=== PATIENT | male | born 1985 | race Hispanic/Latino ===

== ENCOUNTER 2018-05-21 20:10 | Emergency (ER) | payer OTHER ==
[~2018-05-21] VITALS: Ht 170.2 cm; Wt 92.5 kg
[~2018-05-21 20:10] MED LIST changes: -DIPHENHYDRAMINE HCL INJ 50 MG/ML VIAL ONE; -FAMOTIDINE 20 MG/2 ML VIAL IV ONE; -FENTANYL CITRATE/PF 100MCG/2 ML INJ ONE; -HEPARIN SOD/SOD CHLORIDE 2,000 ML ONE; -IOPAMIDOL 370 MG/ML 200 ML INFUS..BTL INJ ONE; -LIDOCAINE HCL 2% LOCAL 20 ML VIAL ONE; -METHYLPREDNISOLONE SOD SUCC 125 MG/2ML VIAL ONE; -MIDAZOLAM HCL 2 MG/2 ML VIAL ONE; -SODIUM CHLORIDE 0.9% 1000ML 1,000 ML ONE
[2018-05-21] MEDS ORDERED: ATENOLOL 50 MG TAB PO ONE (21:45)
[2018-05-21 22:24] VITALS: BP 138/85
== END 2018-05-21 22:29 | disposition home or self-care (01) ==
LOC: ER 20:10
DX: R00.2 Palpitations (principal); I10 Essential (primary) hypertension; K21.9 Gastro-esophageal reflux disease without esophagitis
CPT/HCPCS: 99283

== ENCOUNTER → 2018-05-21 | Day surgery (SDC) | payer OTHER ==
[2018-05-20 14:50] LABS: BASOPHILS # (AUTO) 0.1 (0.0-0.1); BASOPHILS % 0.9 % (0.0-1.0); EOSINOPHILS # (AUTO) 0.4 (0.0-0.4); EOSINOPHILS % 5.3 % (0.0-6.0); HEMATOCRIT 46.8 % (38.2-49.6); HEMOGLOBIN 16.2 g/dL (14.0-18.0); LYMPHOCYTES # (AUTO) 1.8 (1.0-3.2); LYMPHOCYTES % 25.6 % (18.0-39.1); MEAN CORPUSCULAR HGB CONC 34.6 g/dL (31-35); MEAN CORPUSCULAR VOLUME 86.7 fL (81-99); MONOCYTES # (AUTO) 0.6 (0.2-0.8); MONOCYTES % 9.1 % (4.4-11.3); NEUTROPHILS # (AUTO) 4.1 (2.1-6.9); NEUTROPHILS % 58.8 % (38.7-80.0); PLATELET COUNT 350 x10e3/uL (140-360); RED CELL DISTRIBUTION WIDTH 11.7 % (11.7-14.4)
[2018-05-20 15:07] LABS: INR 0.8; PROTHROMBIN TIME 11.9 seconds (11.9-14.5)
[2018-05-20 15:16] LABS: ALANINE AMINOTRANSFERASE 308 IU/L (0-55); ALBUMIN 4.7 g/dL (3.5-5.0); ALBUMIN/GLOBULIN RATIO 1.2 (0.8-2.0); ALKALINE PHOSPHATASE 67 IU/L (40-150); ANION GAP 12.3 mmol/L (8-16); BLOOD UREA NITROGEN 13 mg/dL (7-26); BUN/CREATININE RATIO 14 (6-25); CALCIUM 10.5 mg/dL (8.4-10.2); CARBON DIOXIDE 29 mmol/L (22-29); CHLORIDE 99 mmol/L (98-107); CREATININE, SERUM 0.93 mg/dL (0.72-1.25); EST GLOMERULAR FILTRATION RATE > 60 ML/MIN (60-); GLUCOSE 92 mg/dL (74-118); POTASSIUM 4.3 mmol/L (3.5-5.1); SODIUM 136 mmol/L (136-145)
[2018-05-21] VITALS (18 sets, daily range): BP systolic 76–143; BP diastolic 16–96
[~2018-05-21] VITALS: Ht 170.2 cm; Wt 92.5 kg
[~2018-05-21] MED LIST: AMOXICILLIN250 MG PO; ASPIR 8181 MG PO; ATENOLOL50 MG PO; CRESTOR10 MG PO; DIPHENHYDRAMINE HCL INJ 50 MG/ML VIAL ONE; FAMOTIDINE 20 MG/2 ML VIAL IV ONE; FENTANYL CITRATE/PF 100MCG/2 ML INJ ONE; HEPARIN SOD/SOD CHLORIDE 2,000 ML ONE; IOPAMIDOL 370 MG/ML 200 ML INFUS..BTL INJ ONE; LIDOCAINE HCL 2% LOCAL 20 ML VIAL ONE; METHYLPREDNISOLONE SOD SUCC 125 MG/2ML VIAL ONE; MIDAZOLAM HCL 2 MG/2 ML VIAL ONE; OMEPRAZOLE40 MG PO; SODIUM CHLORIDE 0.9% 1000ML 1,000 ML ONE
--- OUTSIDE RECORDS SUMMARY | 2018-05-21 06:32 | XMS REPORT ---
Author Author [facility] Organization [facility] Address Unknown Phone Unavailable Care Team Providers Care Home Help Aide Name Role Phone Adwoa SIMMS Unavailable Unavailable Payers Payer Name Policy Type Policy Number Effective Date Expiration Date Problems This patient has no known problems. Allergies, Adverse Reactions, Alerts Allergy Name Allergy Type Status Severity Reaction(s) Onset Date Inactive Date Treating Clinician Comments No Known Allergies DA Active U 2018 00:00:00 No Known Allergies DA Active U 2018-04-10 00:00:00 No Known Allergies DA Active U 2013-10-14 00:00:00 Medications This patient has no known medications. Results Test Description Test Time Test Comments Text Results Atomic Results Result Comments US PELVIS COMPLETE NON OB 2018-05-11 12:26:[address] [address] Patient Name: SHRUTHI CANELA MR #: [id number] : 1985 Age/Sex: 33/M Req #: [id number] Adm Physician: Ordered by: CONTRERAS SIMMS MD Report #: [id number] Location: US Room/Bed: Procedure: [id number] US/US PELVIS COMPLETE NON OB Exam Date: 05/11/18 Exam Time: 1112 REPORT STATUS: Signed EXAM: US ABDOMEN COMPLETE, US PELVIS COMPLETE NON OB DATE: 05/11/2018 10:56 AM INDICATION: Left lower quadrant pain. COMPARISON: None TECHNIQUE: Transverse and longitudinal penaloza scale and color doppler sonographic images of the abdomen and pelvis were obtained. FINDINGS: ABDOMEN: LIVER Measures 14.2 cm in the right midclavicular line. Increased echogenicity of the liver with normal contour, no masses. SPLEEN Measures 10.3 cm in maximum diameter. Normal echogenicity, no masses. GALLBLADDER No gallbladder wall thickening, distension, stone, or pericholecystic fluid. Negative reported sonographic Denny's sign. BILE DUCTS No intra nor extra-hepatic biliary dilation. Common bile duct measures 0.3 cm PANCREAS: Visualized portions are normal. RIGHT KIDNEY: Measures 10.3 cm Echogenicity: Normal Collecting System: No hydronephrosis Stones: None Cyst/Mass: None LEFT KIDNEY: Measures 12.7 cm Echogenicity: Normal Collecting System: No hydronephrosis Stones: None Cyst/Mass: None VESSELS: Aorta: Visualized portions are within normal size limits Inferior Vena Cava: Visualized portions are normal Main Portal Vein: Measures 0.9 cm, normal size with hepatopetal flow. FREE FLUID: None PELVIS: Bladder is unremarkable in appearance. Bilateral ureteral jets are present. Bladder pre-void volume is 43 cc and the bladder post void volume is 4.5 cc. The prostate is unremarkable in appearance. No evidence of mass in the bilateral inguinal regions. IMPRESSION: Hepatic steatosis. Otherwise unremarkable ultrasound of the abdomen and pelvis. Signed by: Dr. Valeri Arana MD on 05/11/2018 12:30 PM Dictated By: VALERI ARANA MD 1230 Transcribed By: LUCIE Matos on 05/11/18 1230 COPY TO: CONTRERAS SIMMS MD US ABDOMEN COMPLETE 2018-05-11 12:26:00 [place] [address] Patient Name: SHRUTHI CANELA MR #: [id number] : 1985 Age/Sex: 33/M Re #: [id number] [facility] Physician: Ordered by: CONTRERAS SIMMS MD Report #: [id number] Location: Room/Bed: Procedure: [id number] US/US ABDOMEN COMPLETE Exam Date: 05/11/18 Exam Time: 1130 REPORT STATUS: Signed EXAM: US ABDOMEN COMPLETE, US PELVIS COMPLETE NON OB DATE: 05/11/2018 10:56 AM INDICATION: Left lower quadrant pain. COMPARISON: None TECHNIQUE: Transverse and longitudinal penaloza scale and color doppler sonographic images of the abdomen and pelvis were obtained. FINDINGS: ABDOMEN: LIVER Measures 14.2 cm in the right midclavicular line. Increased echogenicity of the liver with normal contour, no masses. SPLEEN Measures 10.3 cm in maximum diameter. Normal echogenicity, no masses. GALLBLADDER No gallbladder wall thickening, distension, stone, or pericholecystic fluid. Negative reported sonographic Denny's sign. BILE DUCTS No intra nor extra-hepatic biliary dilation. Common bile duct measures 0.3 cm PANCREAS: Visualized portions are normal. RIGHT KIDNEY: Measures 10.3 cm Echogenicity: Normal Collecting System: No hydronephrosis Stones: None Cyst/Mass: None LEFT KIDNEY: Measures 12.7 cm Echogenicity: Normal Collecting System: No hydronephrosis Stones: None Cyst/Mass: None VESSELS: Aorta: Visualized portions are within normal size limits Inferior Vena Cava: Visualized portions are normal Main Portal Vein: Measures 0.9 cm, normal size with hepatopetal flow. FREE FLUID: None PELVIS: Bladder is unremarkable in appearance. Bilateral ureteral jets are present. Bladder pre-void volume is 43 cc and the bladder post void volume is 4.5 cc. The prostate is unremarkable in appearance. No evidence of mass in the bilateral inguinal regions. IMPRESSION: Hepatic steatosis. Otherwise unremarkable ultrasound of the abdomen and pelvis. Signed by: Dr. Valeri Arana MD on 05/11/2018 12:30 PM Dictated By: VALERI ARANA MD 1230 Transcribed By: YAHIR on 05/11/18 1230 COPY TO: CONTRERAS SIMMS MD
--- NOTE | 2018-05-21 13:05 | Operative Report ---
DATE OF PROCEDURE: May 21, 2018 PROCEDURE TITLE: Cardiac catheterization PROCEDURES 1. Selective coronary angiography x2. 2. Left heart catheterization. 3. Aortogram. SEDATION 1. Midazolam 6 mg. 2. Fentanyl 150 mcg. PREOPERATIVE DIAGNOSES 1. Abnormal nuclear stress test. 2. Chest pain. CONSENT: Informed consent was obtained and documented in the chart. DETAILS OF PROCEDURE: The patient was brought to the cardiac catheterization laboratory in a fasting state after written informed consent was obtained. Bilateral groins were prepped and draped in the usual sterile fashion. Lidocaine 1% was infiltrated over the right groin to achieve local anesthesia. The right common femoral artery was accessed using micropuncture needle. A 5-Albanian sheath was placed via modified Seldinger technique. A 5-Albanian JL4 was inserted and advanced into the ascending aorta. The left main coronary artery was cannulated under fluoroscopic guidance. Selective coronary angiography was performed. The JL4 was removed and a 5-Albanian JR4 was inserted into the ascending aorta. The right coronary artery could not be cannulated. The JR4 was removed over an exchanged length Wholey wire. A 5-Albanian 3DRC was inserted and advanced into the ascending aorta. A nonselective angiogram of the right coronary artery was obtained. Next, the 5-Albanian 3DRC was advanced into the left ventricle. Hemodynamic measurements were performed. The 3DRC was removed and a 5-Albanian pigtail was inserted and advanced into the ascending aorta. Aortogram was performed and the 5-Albanian pigtail was removed over the exchanged length Wholey wire. A 5-Albanian Ar MOD was then inserted and advanced into the ascending aorta. It was used to cannulate the right coronary artery under fluoroscopic guidance. Selective coronary angiography was performed. The Ar MOD was subsequently removed. Angiogram was performed of the right external iliac. The 5-Albanian sheath was removed and manual pressure was held until adequate hemostasis was achieved. The patient tolerated the procedure well without complication. FINDINGS 1. Left main coronary artery bifurcates into left anterior descending and left circumflex arteries. 2. The left anterior descending is a moderate caliber vessel without evidence of coronary artery disease. 3. The left circumflex is a large caliber vessel without evidence of coronary artery disease. 4. The right coronary artery had an anomalous origin with take off appearing to be high and anterior on the ascending aorta. There was no evidence of coronary artery disease. 5. LVEDP 24 mmHg, LV pressure 124/8 mmHg. CONCLUSION 1. No coronary artery disease. 2. Anomalous origin of the right coronary artery. RECOMMENDATIONS 1. Medical therapy. 2. Coronary CTA to further evaluate anomalous coronary artery. Job#: [id number] SUB MTDD
== END | disposition home or self-care (01) ==
LOC: CATH LAB 06:25
PROVIDERS: ATTEND Internal Medicine
DX: R07.89 Other chest pain (principal); R94.39 Abnormal result of other cardiovascular function study; I77.89 Other specified disorders of arteries and arterioles; I10 Essential (primary) hypertension; R00.2 Palpitations; E78.5 Hyperlipidemia, unspecified; Z01.812 Encounter for preprocedural laboratory examination; Z79.82 Long term (current) use of aspirin; Z68.34 Body mass index [BMI] 34.0-34.9, adult; Z82.49 Family history of ischemic heart disease and other diseases of the circulatory system
CPT/HCPCS: 36415; 75605; 80053; 85025; 85610; 93458; C1769; J1200; J2001; J2250; J2930; J7030; Q9967

== ENCOUNTER → 2018-09-15 | Outpatient (CLI) | payer OTHER ==
--- NOTE | 2018-09-15 11:38 | Diagnostic Imaging Report ---
TECHNIQUE: Ultrasound evaluation of the abdomen. Color doppler was utilized to supplement the evaluation. HISTORY: Upper abdominal pain COMPARISON: Ultrasound abdomen May 11, 2018 DISCUSSION: Regional bowel gas partially limits portions of the exam, especially the pancreas. LIVER: Diffusely increased echogenicity. No focal lesion is identified. The liver measures 14 cm in the right midclavicular line. BILIARY: Normal appearance, without evidence for gallstones, gallbladder wall thickening or pericholecystic fluid. The sonographic Denny's sign is reported as negative. The common bile duct measures 0.3 cm. PANCREAS: Incompletely visualized due to overlying bowel gas. SPLEEN: No splenomegaly. PERITONEUM: No free fluid. KIDNEYS: Right: Measures 11 cm in length. No hydronephrosis or solid mass lesion identified. Left: Measures 13 cm in length. No hydronephrosis or solid mass lesion identified. VASCULATURE: Aorta: Visualized portions appear unremarkable. Interior vena cava: Visualized portions appear unremarkable. Portal Vein: Nondilated with hepatopedal flow. IMPRESSION: 1. Findings remain compatible with hepatic steatosis. 2. Otherwise, unremarkable abdominal ultrasound and no significant interval change. Signed by: Dr. Braxton Rosen D.O., M.M.M. on 09/15/2018 11:35 AM
== END ==
LOC: US 10:27
PROVIDERS: ATTEND Internal Medicine
DX: R10.10 Upper abdominal pain, unspecified (principal)
CPT/HCPCS: 76700

== ENCOUNTER → 2018-09-22 | Outpatient (CLI) | payer OTHER ==
[~2018-09-22] MED LIST changes: +IOPAMIDOL 370 MG/ML 200 ML INFUS..BTL INJ ONE; +SODIUM CHLORIDE 0.9% 50ML 50 ML ONE
[2018-09-22 08:24] LABS: BLOOD UREA NITROGEN 14 mg/dL (7-26); BUN/CREATININE RATIO 16 (6-25); CREATININE, SERUM 0.85 mg/dL (0.72-1.25); EST GLOMERULAR FILTRATION RATE > 60 ML/MIN (60-)
--- NOTE | 2018-09-22 09:12 | Diagnostic Imaging Report ---
EXAMINATION: CT of the abdomen with contrast. TECHNIQUE: Spiral CT images of the abdomen were performed from the lung bases to the iliac crests after the intravenous administration of 100 cc of Isovue-370 and the oral administration of water. Coronal and sagittal reformatted images were obtained. COMPARISON: Abdominal ultrasound 09/15/2018 CLINICAL HISTORY:Upper abdominal pain, mass DISCUSSION: LOWER THORAX:Subsegmental atelectasis in the dependent left lower lobe. Otherwise unremarkable. HEPATOBILIARY: Hepatic parenchyma is diffusely hypoattenuating compatible with steatosis no focal hepatic lesion or intrahepatic biliary ductal dilatation. The gallbladder is unremarkable. SPLEEN: No splenomegaly. PANCREAS: No focal masses or ductal dilatation. ADRENALS: No adrenal nodules. KIDNEYS/URETERS: No hydronephrosis, stones, or solid mass lesions. PERITONEUM/RETROPERITONEUM: No free air or fluid. LYMPH NODES: No retroperitoneal or mesenteric lymphadenopathy VESSELS: Abdominal aorta is nonaneurysmal. 3 right renal arteries and 2 left renal arteries, all of which are patent. Portal vein, splenic vein, and central superior mesenteric vein are patent. GI TRACT: Visualized portions of the large bowel show no evidence of distention or wall thickening. The appendix is normal. The stomach is collapsed with prominence of the rugal folds. No small bowel dilatation to suggest obstruction. BONES AND SOFT TISSUE: No osseous destructive lesions. Ill-defined soft tissue stranding in the right gluteal subcutaneous fat may reflect contusion or an injection granuloma. Otherwise no focal soft tissue abnormality. IMPRESSION: No acute intra-abdominal CT abnormality. Specifically, no soft tissue mass. Probable small contusion or injection granuloma in the subcutaneous fat of the right gluteal region. Hepatic steatosis. Signed by: Dr. Jn Nevarez M.D. on 09/22/2018 9:09 AM
== END ==
LOC: CT 07:37
PROVIDERS: ATTEND Internal Medicine
DX: R10.10 Upper abdominal pain, unspecified (principal); R19.00 Intra-abdominal and pelvic swelling, mass and lump, unspecified site; K75.81 Nonalcoholic steatohepatitis (NASH)
CPT/HCPCS: 36415; 74160; 82565; 84520; Q9967

== ENCOUNTER → 2020-07-26 | Outpatient (CLI) | payer OTHER ==
[~2020-07-26] MED LIST changes: -IOPAMIDOL 370 MG/ML 200 ML INFUS..BTL INJ ONE; -SODIUM CHLORIDE 0.9% 50ML 50 ML ONE
== END ==
LOC: NM 08:19
PROVIDERS: ATTEND Internal Medicine Gastroenterology
DX: R10.11 Right upper quadrant pain (principal)
CPT/HCPCS: 78227; A9537